=== PATIENT | male | born 1935 | race Caucasian/White ===

== ENCOUNTER → 2017-11-23 | Outpatient (CLI) | payer MEDICARE ==
[~2017-11-23] MED LIST: TOPROL XL25 MG PO; WARFARIN SODIUM6 MG PO; WILL BRING LIST; Z.0.AMIODARONE HCL20 PO; Z.0.COUMADIN3 MG PO; Z.0.KLOR-CON 1010 ME PO; Z.0.LASIX20 MG PO; Z.0.LOVASTATIN20 MG PO; Z.0.NORVASC10 MG PO
--- NOTE | 2017-11-23 13:34 | Diagnostic Imaging Report ---
PROCEDURE: Frontal and lateral views of the chest. COMPARISON: 10/15/16 INDICATIONS: BRONCHITIS, CHEST CONGESTION, SHORT OF BREATH FINDINGS: Lines/tubes: Stable left chest wall dual lead cardiac device. Lungs: The lungs are well inflated. Unchanged elevated left hemidiaphragm. Unchanged right midlung nodular density, likely a calcified granuloma. Bibasilar hazy opacities, likely subsegmental atelectasis. Pleura: There is no significant pleural effusion or pneumothorax. Heart and mediastinum: Partially obscured enlarged cardiac silhouette. Aorta is calcified. Unchanged median sternotomy wires and mediastinal surgical clips. Bones: No acute bony abnormality. IMPRESSION: Unchanged elevated left hemidiaphragm with bibasilar subsegmental atelectasis. Underlying infiltrate cannot be entirely excluded. Dictated by: Dante Amezcua M.D. on 11/23/2017 at 13:42 Electronically approved by: Dante Amezcua M.D. on 11/23/2017 at 13:42
== END ==
LOC: RAD 12:42
PROVIDERS: ATTEND Internal Medicine
DX: J20.9 Acute bronchitis, unspecified (principal)
CPT/HCPCS: 71020